=== PATIENT | female | born 1980 | race Caucasian/White ===

== ENCOUNTER 2016-11-20 14:46 | Outpatient (CLI) | payer MEDICAID ==
[~2016-11-20] VITALS: Ht 157.5 cm; Wt 84.0 kg
[~2016-11-20 14:46] MED LIST: IBUP800T25 PO; PERCOCET PO
[2016-11-20 15:15] VITALS: Ht 157.5 cm; Wt 84.0 kg
[2016-11-20 15:27] VITALS: BP 107/70; PULSE 88; RESP 18
[2016-11-20 17:06] LABS: ADD SCAN DIFF NO
[2016-11-20 17:08] LABS: BASOPHILS % 0.2 % (0.0-2.0); EOSINOPHILS # 0.1 10^3/ul (0.0-0.5); EOSINOPHILS % 0.9 % (0.0-7.0); HEMATOCRIT 34.2 % (37.0-47.0); HEMOGLOBIN 11.9 g/dl (12.0-16.0); LYMPHOCYTES # 1.2 10^3/ul (0.8-2.9); LYMPHOCYTES % 20.8 % (15.0-51.0); MEAN CORPUSCULAR HEMOGLOBIN 32.4 pg (29.0-33.0); MEAN CORPUSCULAR HGB CONC 34.8 g/dl (32.0-37.0); MEAN CORPUSCULAR VOLUME 93.2 fl (82.0-101.0); MEAN PLATELET VOLUME 10.2 fl (7.4-10.4); MONOCYTE # 0.6 10^3/ul (0.3-0.9); MONOCYTES % 10.6 % (0.0-11.0); NEUTROPHIL # 3.7 10^3/ul (1.6-7.5); NEUTROPHILS % 65.7 % (39.0-77.0); PLATELET COUNT 208 10^3/UL (140-415); RED BLOOD COUNT 3.67 10^6/ul (4.20-5.40); RED CELL DISTRIBUTION WIDTH 13.2 % (11.5-14.5); WHITE BLOOD COUNT 5.6 10^3/ul (4.8-10.8)
[2016-11-20 17:10] LABS: ADD UMIC YES; URINE BILIRUBIN (Dip) NEGATIVE (NEGATIVE); URINE BLOOD (Dip) NEGATIVE (NEGATIVE); URINE COLOR YELLOW (YELLOW); URINE GLUCOSE (Dip) NEGATIVE (NEGATIVE); URINE KETONES (Dip) 3+ (NEGATIVE); URINE LEUKOCYTE ESTERASE (Dip) TRACE (NEGATIVE); URINE NITRITE (Dip) NEGATIVE (NEGATIVE); URINE TOTAL PROTEIN (Dip) TRACE (NEGATIVE); URINE UROBILINOGEN (Dip) 0.2 E.U./dL (0.1-1.0)
--- NOTE | 2016-11-20 17:12 | RADRPT ---
PROCEDURE: CERVICAL LENGTH ULTRASOUND CLINICAL INDICATION: Positive test. Pelvic pain. TECHNIQUE: Trans-vaginal imaging of the cervical canal was performed utilizing carreon-scale imaging. Sagittal and transverse images were obtained. Trans-abdominal images were also obtained. The darby ges were reviewed on a PACS workstation. COMPARISON: None. FINDINGS: There is a single live intrauterine . heart rate is 141 beats per minute. Position is cephalic and placenta is anterior grade II. There is no placenta previa. The cervix is closed with a length of 4.5 cm. IMPRESSION: 1. Cervical length is 4.5 cm. RPTAT: QQ .Zain Padilla MD, MD Date Time Electronically viewed and signed by .Zain Padilla MD, on 11/20/2016 17:11 .R/
[2016-11-20 17:20] LABS: ALBUMIN 3.4 g/dl (3.3-4.9)
[2016-11-20 17:21] LABS: POTASSIUM 3.7 mmol/L (3.5-5.1)
[2016-11-20 17:23] LABS: ALBUMIN/GLOBULIN RATIO 1.06; BACTERIA,URINE FEW; BILIRUBIN,INDIRECT 0.2 mg/dl (0-1.1); BILIRUBIN,TOTAL 0.2 mg/dl (0.2-1.3); CREATININE 0.54 mg/dl (0.44-1.00); TOTAL PROTEIN 6.6 g/dl (6.1-8.1); URINE RBCS 0-2 /HPF (0)
[2016-11-20 17:24] LABS: CALCIUM 8.8 mg/dl (8.4-10.2)
[2016-11-20] MEDS ORDERED: LACTATED RINGER'S 250 ML IV ONE (18:00)
--- NOTE | 2016-11-21 01:39 | TRIAGE ---
OB Triage Datetime Report Generated by CPN: 11/21/2016 01:39 Datetime: 11/20/2016 21:19 Pain Assessment Pain Scale: 0 Pain Presence: None/Denies Pain Type: N/A Datetime: 11/20/2016 21:00 Labor Evaluation Frequency: x1 Monitor Mode: External Duration (sec)2399: 70 Pattern: Normal: <= 5 Contractions in 10 Minutes Resting Tone [place]: Relaxed Heart Rate FHR Baseline Rate: 135 Monitor Mode: External US Variability: Moderate 6-25 bpm Accelerations: 15X15 Decelerations: None Category: Category I Datetime: 11/20/2016 20:00 Labor Evaluation Frequency: x1 Monitor Mode: External Duration (sec)2399: 40 Pattern: Normal: <= 5 Contractions in 10 Minutes Resting Tone [place]: Relaxed Heart Rate FHR Baseline Rate: 140 Monitor Mode: External US Variability: Moderate 6-25 bpm Accelerations: 15X15 Decelerations: None Category: Category I Pain Assessment Pain Scale: 0 Pain Presence: None/Denies Pain Goal: 0 Datetime: 11/20/2016 18:55 Labor Evaluation Frequency: 0 Monitor Mode: External Pattern: Normal: <= 5 Contractions in 10 Minutes Resting Tone [place]: Relaxed Heart Rate FHR Baseline Rate: 145 Monitor Mode: External US Variability: Moderate 6-25 bpm Accelerations: 15X15 Decelerations: None Category: Category I Pain Assessment Pain Scale: 2 Pain Presence: Intermittent Pain Type: Cramping Pain Location: Abdomen Pain Goal: 0 Pain Relief Measures: Comfort Measures Datetime: 11/20/2016 17:59 Labor Evaluation Frequency: 0 Monitor Mode: External Resting Tone [place]: Relaxed Heart Rate FHR Baseline Rate: 135 Monitor Mode: External US Variability: Moderate 6-25 bpm Accelerations: 15X15 Decelerations: None Category: Category I Pain Presence: None/Denies Pain Type: N/A Datetime: 11/20/2016 17:30 Comments: MATERNAL HT PICKING UP Datetime: 11/20/2016 17:29 Labor Evaluation Frequency: 0 Monitor Mode: External Resting Tone [place]: Relaxed Heart Rate FHR Baseline Rate: 145 Monitor Mode: External US Variability: Moderate 6-25 bpm Accelerations: 15X15 Decelerations: None Category: Category I Datetime: 11/20/2016 17:00 Comments: BACK ON MONITOR AFTER US Datetime: 11/20/2016 16:53 Comments: US AT BEDSIDE Datetime: 11/20/2016 15:52 Stage of : OB Triage Assessment Type: Triage Maternal Assessment Level of Consciousness: Fully Conscious DTR's/Clonus: DTRs 2+; No Clonus Headache: Denies Blurred Vision: No Respiratory Effort: Unlabored; Regular Rhythm; Equal Expansion Breath Sounds, Left: Clear and Equal Breath Sounds, Right: Clear and Equal Nausea/Vomiting: Denies RUQ Epigastric Pain: Denies Upper Extremities Edema: None Degree: None Facial Edema: None Temperature Route: Oral Fall Risk Assessment History of Falling: (0) No Secondary Diagnosis: (0) No Ambulatory Aid: (0) Bedrest/Nurse Assist IV Therapy: (0) No Gait: (0) Normal/Bedrest/Immobile Mental Status: (0) Oriented to Own Ability Fall Score: 0 Fall Risk Score Definition: No Risk: No action required Monitor Mode: External Heart Rate FHR Baseline Rate: 135 Monitor Mode: External US Variability: Moderate 6-25 bpm Accelerations: 15X15 Decelerations: None Pain Assessment Pain Scale: 4 Pain Presence: Intermittent Pain Type: Cramping Pain Location: Abdomen Pain Goal: 0 Pain Relief Measures: Comfort Measures Datetime: 11/20/2016 15:32 Stage of : OB Triage Maternal Assessment Level of Consciousness: Fully Conscious DTR's/Clonus: DTRs 2+; No Clonus Headache: Denies Blurred Vision: No Respiratory Effort: Unlabored; Regular Rhythm; Equal Expansion Breath Sounds, Left: Clear and Equal Breath Sounds, Right: Clear and Equal Nausea/Vomiting: Denies RUQ Epigastric Pain: Denies Lower Extremities Edema: None Degree: None Upper Extremities Edema: None Degree: None Facial Edema: None Temperature Route: Axillary Fall Risk Assessment History of Falling: (0) No Secondary Diagnosis: (0) No Ambulatory Aid: (0) Bedrest/Nurse Assist IV Therapy: (0) No Gait: (0) Normal/Bedrest/Immobile Mental Status: (0) Oriented to Own Ability Fall Score: 0 Fall Risk Score Definition: No Risk: No action required Heart Rate FHR Baseline Rate: 140 Monitor Mode: External US Pain Assessment Pain Scale: 4 Pain Presence: Intermittent Pain Type: Cramping Pain Location: Back Datetime: 11/20/2016 15:30 Time of Arrival: 11/20/2016 15:30 EGA: 32.4 Arrived By: Ambulatory Arrived From: Dr. Bauer Chief Complaint: cramping sice Movement: Present Contractions: Irregular Contractions: cramps Rupture of Membranes: Denies Vaginal Discharge: Denies Recent Sexual Intercouse: Denies Abdominal Trauma: Not Applicable Patient Complaints: Cramping Additional Patient Complaints: c/o vomitting diarhea x 3 days Time Provider Notified: 11/20/2016 16:30 Provider Notified: DR. NG Initial Plan: j carlos
== END 2016-11-20 22:05 | disposition home or self-care (01) ==
LOC: L-D 14:46 → OBT 14:46 → L-D 14:53 → OBT 22:05
PROVIDERS: ATTEND Obstetrics & Gynecology
DX: O26.893 Other specified pregnancy related conditions, third trimester (principal); R10.9 Unspecified abdominal pain; R10.2 Pelvic and perineal pain; O09.523 Supervision of elderly multigravida, third trimester; Z3A.32 32 weeks gestation of pregnancy
CPT/HCPCS: 36415; 76817; 80053; 81001; 85025; 96360; 96361; J7120; Z7500; 81003; G0463

== ENCOUNTER 2016-12-14 18:20 | Outpatient (CLI) | payer MEDICAID ==
[~2016-12-14] VITALS: Ht 154.9 cm; Wt 88.5 kg
[2016-12-14 18:36] VITALS: Ht 154.9 cm; Wt 88.5 kg
[2016-12-14 18:37] VITALS: BP 117/65; PULSE 80; RESP 18
[2016-12-14] MEDS ORDERED: LACTATED RINGER'S 1,000 ML IV ONE (22:00)
[2016-12-14] MEDS ORDERED: LACTATED RINGER'S 1,000 ML IV* SCH (22:00)
--- NOTE | 2016-12-14 22:13 | RADRPT ---
PROCEDURE: OB ultrasound for biophysical profile CLINICAL INDICATION: labor. TECHNIQUE: Multiple sonographic images of the gravid uterus performed. The images were reviewed on a PACS workstation. COMPARISON: 11/20/2016 FINDINGS: A single live intrauterine is identified with heart rate of 141 bpm. Fet us is in a cephalic presentation. Placenta is located anterior grade II. Biophysical profile: breathing movement = 2/2 tone = 2/2 motion = 2/2 LEISA = 2/2 LEISA = 7.8 cm. IMPRESSION: 1. Single live intrauterine gestation. 2. Biophysical profile = 8/8. 3. LEISA = 7.8 cm. RPTAT: HMVK .Danilo Joseph MD, Date Time Electronically viewed and signed by .Danilo Joseph MD, MD on 12/14/2016 22:13 .K/
[2016-12-14 23:33] LABS: ADD UMIC YES; URINE BILIRUBIN (Dip) NEGATIVE (NEGATIVE); URINE BLOOD (Dip) NEGATIVE (NEGATIVE); URINE COLOR LT. YELLOW (YELLOW); URINE GLUCOSE (Dip) NEGATIVE (NEGATIVE); URINE KETONES (Dip) NEGATIVE (NEGATIVE); URINE LEUKOCYTE ESTERASE (Dip) 1+ (NEGATIVE); URINE NITRITE (Dip) NEGATIVE (NEGATIVE); URINE TOTAL PROTEIN (Dip) NEGATIVE (NEGATIVE); URINE UROBILINOGEN (Dip) 0.2 E.U./dL (0.1-1.0)
[2016-12-14 23:53] LABS: URINE RBCS 0-2 /HPF (0)
[2016-12-14 23:54] LABS: BACTERIA,URINE FEW; SQUAMOUS EPITHELIAL CELL,UR FEW
--- NOTE | 2016-12-15 00:31 | PN ---
Date/Time of Note Date/Time of Note DATE: 12/15/16 TIME: 00:03 OB Subjective Subjective Subjective 36 yo P4 @ 35 wks presents w ctx; 2 prior 's followed by 2 prior c/d good FM, no VB, no LOF OB Objective Objective Objective 117/65, 80, 18, 97.6 Abdomen- gravid, n/t SVE- closed FHT- Cat I [place]- ctx q 10 min HEENT: WNL Abdomen: WNL Cervical Dilatation: None Effacement: 0% Station: -3 Membranes: Intact Accelerations: Accelerations Present Decelerations: No Decelerations Varibility: Moderate Contractions on Admission: >10 Minutes Apart Intensity: Mild OB Assessment/Plan Other Assessment: 36 yo P4@ 35 wks, not in labor, w pre-term ctx Other plan: Patient came with c/o ctx, which have decreased after IVfluids reassuring status d/c home patient advised to f/u tomorrow w her doctor RODRICK DAO MD Dec 15, 2016 00:29
[2016-12-15] MEDS ORDERED: PREN1TAB79 PO (00:34)
[2016-12-15] MEDS ORDERED: FERR325C PO (00:35)
--- NOTE | 2016-12-15 03:26 | TRIAGE ---
OB Triage Datetime Report Generated by CPN: 12/15/2016 03:26 Datetime: 12/15/2016 00:27 Stage of : OB Triage Labor Evaluation Frequency: x3 Monitor Mode: External Duration (sec)2399: 60-90 Quality: Mild Pattern: Normal: <= 5 Contractions in 10 Minutes Resting Tone [place]: Relaxed Heart Rate FHR Baseline Rate: 135 Monitor Mode: External US Variability: Moderate 6-25 bpm Accelerations: 15X15 Decelerations: None Category: Category I Datetime: 12/15/2016 00:00 Stage of : OB Triage Labor Evaluation Frequency: x5 Monitor Mode: External Duration (sec)2399: 50-120 Quality: Mild Pattern: Normal: <= 5 Contractions in 10 Minutes Resting Tone [place]: Relaxed Heart Rate FHR Baseline Rate: 145 Monitor Mode: External US FHR Baseline Changes: No Baseline Change Variability: Moderate 6-25 bpm Accelerations: 15X15 Decelerations: None Category: Category I Datetime: 12/14/2016 23:29 Vaginal Exam Dilatation (cms): 0.0 Effacement (%): 0 Station: -4 Exam By: GRANT Escobedo Membrane Status: Intact Vaginal Bleeding: None Cervix, Consistency: Firm Cervix, Position: Posterior Datetime: 12/14/2016 23:00 Stage of : OB Triage Labor Evaluation Frequency: x6 Monitor Mode: External Duration (sec)2399: 50-130 Quality: Mild Pattern: Normal: <= 5 Contractions in 10 Minutes Resting Tone [place]: Relaxed Heart Rate FHR Baseline Rate: 145 Monitor Mode: External US FHR Baseline Changes: No Baseline Change Variability: Moderate 6-25 bpm Accelerations: 15X15 Decelerations: None Category: Category I Datetime: 12/14/2016 22:00 Stage of : OB Triage Labor Evaluation Frequency: Irregular Monitor Mode: External Duration (sec)2399: 40-90 Quality: Mild Pattern: Normal: <= 5 Contractions in 10 Minutes Resting Tone [place]: Relaxed Heart Rate FHR Baseline Rate: 145 Monitor Mode: External US Variability: Moderate 6-25 bpm Accelerations: 15X15 Decelerations: None Category: Category I Datetime: 12/14/2016 21:00 Stage of : OB Triage Labor Evaluation Frequency: x4 Monitor Mode: External Duration (sec)2399: 60-100 Quality: Mild Pattern: Normal: <= 5 Contractions in 10 Minutes Resting Tone [place]: Relaxed Heart Rate FHR Baseline Rate: 140 Monitor Mode: External US Variability: Moderate 6-25 bpm Accelerations: 15X15 Decelerations: None Category: Category I Datetime: 12/14/2016 20:36 Stage of : OB Triage Assessment Type: Triage Maternal Assessment Level of Consciousness: Fully Conscious DTR's/Clonus: DTRs 2+; No Clonus Headache: Denies Blurred Vision: No Respiratory Effort: Unlabored; Regular Rhythm; Equal Expansion Breath Sounds, Left: Clear and Equal Breath Sounds, Right: Clear and Equal Nausea/Vomiting: Denies RUQ Epigastric Pain: Denies Lower Extremities Edema: Bilateral Lower Extremities Degree: 1+ Upper Extremities Edema: None Degree: None Facial Edema: None Temperature Route: Oral Fall Risk Assessment History of Falling: (0) No Secondary Diagnosis: (0) No Ambulatory Aid: (0) Bedrest/Nurse Assist IV Therapy: (0) No Gait: (0) Normal/Bedrest/Immobile Mental Status: (0) Oriented to Own Ability Fall Score: 0 Fall Risk Score Definition: No Risk: No action required Pain Assessment Pain Scale: 3 Pain Presence: Intermittent Pain Type: Cramping Pain Location: Abdomen Pain Relief Measures: Comfort Measures Datetime: 12/14/2016 20:00 Stage of : OB Triage Labor Evaluation Frequency: x4 Monitor Mode: External Duration (sec)2399: 50-110 Quality: Mild Pattern: Normal: <= 5 Contractions in 10 Minutes Resting Tone [place]: Relaxed Heart Rate FHR Baseline Rate: 150 Monitor Mode: External US Variability: Moderate 6-25 bpm Accelerations: 15X15 Decelerations: None Category: Category I Datetime: 12/14/2016 18:49 Headache: Denies Blurred Vision: No RUQ Epigastric Pain: Denies Facial Edema: None Labor Evaluation Frequency: 13 Monitor Mode: External Duration (sec)2399: 50 Quality: Mild Pattern: Normal: <= 5 Contractions in 10 Minutes Resting Tone [place]: Non Relaxed Heart Rate FHR Baseline Rate: 145 FHR Baseline Changes: No Baseline Change Variability: Moderate 6-25 bpm Accelerations: 15X15 Decelerations: None Category: Category I Membrane Status: Intact Datetime: 12/14/2016 18:31 Stage of : OB Triage Maternal Assessment Level of Consciousness: Fully Conscious DTR's/Clonus: DTRs 2+; No Clonus Headache: Denies Blurred Vision: No Respiratory Effort: Unlabored; Regular Rhythm; Equal Expansion Breath Sounds, Left: Clear and Equal Breath Sounds, Right: Clear and Equal Nausea/Vomiting: Denies RUQ Epigastric Pain: Denies Lower Extremities Edema: Bilateral Lower Extremities Degree: 1+ Upper Extremities Edema: None Degree: None Facial Edema: None Temperature Route: Axillary Fall Risk Assessment History of Falling: (0) No Secondary Diagnosis: (0) No Ambulatory Aid: (0) Bedrest/Nurse Assist IV Therapy: (0) No Gait: (0) Normal/Bedrest/Immobile Mental Status: (0) Oriented to Own Ability Fall Score: 0 Fall Risk Score Definition: No Risk: No action required Monitor Mode: External Heart Rate FHR Baseline Rate: 150 Monitor Mode: External US Pain Presence: Constant Pain Type: Pressure Pain Location: lower abd Pain Goal: 4 Datetime: 12/14/2016 18:23 Time of Arrival: 12/14/2016 18:23 EGA: 35.0 Arrived By: Wheelchair Arrived From: Home Chief Complaint: lower abd pain, pressure on vaginal area Movement: Present Contractions: Regular Time Contractions Began: 12/14/2016 17:00 Contractions: [id number] Rupture of Membranes: Denies Vaginal Bleeding: None Vaginal Discharge: Denies Recent Sexual Intercouse: Denies Abdominal Trauma: Not Applicable Patient Complaints: Contractions; Cramping Time Provider Notified: 12/14/2016 21:20 Provider Notified: Initial Plan: efm/ sve Datetime: 11/20/2016 21:41 Labor Evaluation Frequency: NONE Monitor Mode: External Resting Tone [place]: Relaxed Heart Rate FHR Baseline Rate: 140 Monitor Mode: External US Variability: Moderate 6-25 bpm Accelerations: 15X15 Decelerations: None Category: Category I Datetime: 11/20/2016 15:52 Fall Score: 0 Fall Risk Score Definition: No Risk: No action required Datetime: 11/20/2016 15:32 Fall Score: 0 Fall Risk Score Definition: No Risk: No action required Datetime: 11/20/2016 15:30 EGA: 31.4
== END 2016-12-15 00:39 | disposition home or self-care (01) ==
LOC: OBT 18:20 → L-D 18:21 → OBT 12-15 00:39
PROVIDERS: ATTEND Obstetrics & Gynecology
DX: O47.03 False labor before 37 completed weeks of gestation, third trimester (principal); Z3A.35 35 weeks gestation of pregnancy
CPT/HCPCS: 36415; 76818; 81001; 81003; 96361; J7120; Z7500; G0463

== ENCOUNTER 2017-01-01 12:58 | Inpatient (IN) | payer MEDICAID ==
[~2017-01-01] VITALS: Ht 152.4 cm; Wt 90.0 kg
[~2017-01-01 12:58] MED LIST changes: +FERR325C PO; -IBUP800T25 PO; -PERCOCET PO; +PREN1TAB79 PO
[2017-01-01 13:15] VITALS: Ht 152.4 cm; Wt 90.0 kg
[2017-01-01 13:16] VITALS: BP 113/59; PULSE 80; RESP 20
[2017-01-01] MEDS ORDERED: CALC-68 PO (13:18)
[2017-01-01] MEDS: LACTATED RINGER'S 1,000 ML IV PRN ×2 (14:10→15:34)
[2017-01-01 14:16] LABS: ADD SCAN DIFF NO
[2017-01-01 14:21] LABS: BASOPHILS % 0.4 % (0.0-2.0); EOSINOPHILS # 0.1 10^3/ul (0.0-0.5); HEMATOCRIT 33.6 % (37.0-47.0); HEMOGLOBIN 11.4 g/dl (12.0-16.0); LYMPHOCYTES # 1.2 10^3/ul (0.8-2.9); LYMPHOCYTES % 14.2 % (15.0-51.0); MEAN CORPUSCULAR HEMOGLOBIN 31.8 pg (29.0-33.0); MEAN CORPUSCULAR HGB CONC 33.9 g/dl (32.0-37.0); MEAN CORPUSCULAR VOLUME 93.6 fl (82.0-101.0); MEAN PLATELET VOLUME 10.8 fl (7.4-10.4); MONOCYTE # 0.7 10^3/ul (0.3-0.9); MONOCYTES % 8.1 % (0.0-11.0); NEUTROPHIL # 6.1 10^3/ul (1.6-7.5); NEUTROPHILS % 74.8 % (39.0-77.0); PLATELET COUNT 196 10^3/UL (140-415); RED BLOOD COUNT 3.59 10^6/ul (4.20-5.40); RED CELL DISTRIBUTION WIDTH 13.6 % (11.5-14.5); WHITE BLOOD COUNT 8.1 10^3/ul (4.8-10.8)
[2017-01-01 16:18] LABS: ADD UMIC YES; URINE BILIRUBIN (Dip) NEGATIVE (NEGATIVE); URINE BLOOD (Dip) 1+ (NEGATIVE); URINE COLOR LT. YELLOW (YELLOW); URINE GLUCOSE (Dip) NEGATIVE (NEGATIVE); URINE KETONES (Dip) 15 (NEGATIVE); URINE LEUKOCYTE ESTERASE (Dip) TRACE (NEGATIVE); URINE NITRITE (Dip) NEGATIVE (NEGATIVE); URINE TOTAL PROTEIN (Dip) NEGATIVE (NEGATIVE); URINE UROBILINOGEN (Dip) 0.2 E.U./dL (0.1-1.0)
[2017-01-01 16:26] LABS: BACTERIA,URINE FEW; SQUAMOUS EPITHELIAL CELL,UR FEW; URINE RBCS 0-2 /HPF (0)
[2017-01-01] MEDS ORDERED: TERBUTALINE 1 MG/ML INJ SC ONE (17:30)
--- NOTE | 2017-01-01 19:38 | HP ---
Date/Time of Note Date/Time of Note DATE: 01/01/17 TIME: 19:32 OB - History Hx of Present Free Text/Dictation admitted for C/O vaginal bleeding at 37.3 weeks Chief Complaint: uterine contractions and vaginal bleeding Last Menstrual Period: Apr 13, 2016 Estimated Due Date: January 18, 2017 : 5 Para: 4 Care: Good Care Ultrasounds: Normal mid trimester US Obstetrical Complications: None Medical Complications: Other (previous C/S X 2 ) Past Family/Social History * Past Medical, Surgical, Family and Obstetric Histories reviewed from chart. Blood Type: O+ Rubella: immune RPR/VDRL: Negative GBS Status: Negative HBsAG: Negative OB Admission Exam Vital Signs Vital Signs Vital Signs Date Time Temp Pulse Resp B/P Pulse Ox O2 Delivery O2 Flow Rate FiO2 01/01/17 13:16 98.0 80 20 113/59 Room Air Physical Exam HEENT: WNL Heart: Rhythm Normal Lungs: Clear, Equal Abdomen: WNL Extremities: Normal Reflexes: Normal Cervical Dilatation: None Effacement: 0% Station: [place] Accelerations: Accelerations Present Decelerations: No Decelerations Varibility: Marked Contractions on Admission: >10 Minutes Apart Date/Time Contractions Began: 01/01/2017 Frequency of Contractions: q 3 Duration: >30 seconds Last 72 hours Lab Results CBC & BMP 01/01/17 14:00 OB Assessment/Plan Other Assessment: 37 + weeks gestation uterine contractions Other plan: SQ terbutaline given will observe for U/C until next day KENISHA DUFF MD Jan 01, 2017 19:37
[2017-01-01] MEDS ORDERED: CARBOPROST 250 MCG INJ IM PRN (20:30)
[2017-01-01] MEDS ORDERED: OXYTOCIN 30 UNITS/LR 500 ML IV PRN (20:30)
[2017-01-01] MEDS ORDERED: METHYLERGONOVINE 0.2 MG INJ IM PRN (20:30)
[2017-01-01] MEDS ORDERED: MISOPROSTOL 200 MCG TAB PR PRN (20:30)
[2017-01-01] MEDS ORDERED: CLINDAMYCIN 900 MG/D5W (PMX) 50 ML IVPB SCH (20:30)
[2017-01-01] MEDS ORDERED: OXYTOCIN 30 UNITS/LR 500 ML IV SCH (20:30)
[2017-01-01 21:04] LABS: INR 0.91; PARTIAL THROMBOPLASTIN TIME 30.3 Sec (25.0-35.0); PROTIME 12.3 Sec (12.2-14.2)
--- NOTE | 2017-01-02 00:24 | DS ---
Date/Time of Note Date/Time of Note DATE: 01/02/17 TIME: 00:22 Obstetrical Discharge Record Final Diagnosis Final Diagnosis: Term delivered Other Final Diagnosis Uterine contractions Complications Tocolytics: Terbutaline Condition on Discharge Physical Assessment Last Vitals: see nurses notes Voiding: Yes Bowel Movement: Yes Breast: Soft, non-tender, Filling Fundus: Other (geavid) Abdomen and Incision: gravid Episiotomy: NA Calf Tenderness: No Patient Condition: Good KENISHA DUFF MD Jan 02, 2017 00:24
--- NOTE | 2017-01-02 00:27 | PD.PPDC ---
[employer]ATOR Discharge Instruction Provider Information Physician Information 36 y/o female admitted with uterine contractions which subsided Diagnosis Final Diagnosis: uterine contractions Condition Patient Condition: Good Activity/Restrictions Activity: May Shower Restrictions: No Exercising No Lifting Nothing in the Vagina Follow-up Follow-up with Physician: 1, Day/Days (in cliniuc ) Return to clinic for Comment: return for increasing uterine contractions KENISHA DUFF MD Jan 02, 2017 00:27
--- NOTE | 2017-01-02 04:20 | TRIAGE ---
OB Triage Datetime Report Generated by CPN: 01/02/2017 04:19 Datetime: 01/01/2017 23:42 Pain Assessment Pain Scale: 0 Pain Presence: None/Denies Pain Type: N/A Pain Assessment Comments: PT. STATES SHE ONLY HAS 'PRESSURE' FROM FETUS MOVING. FETUS MOVEMENT OBS ERVED VISUALLY AND BY TOUCH Datetime: 01/01/2017 22:46 Assessment Type: Admission Assessment Vaginal Bleeding: None Maternal Assessment Level of Consciousness: Fully Conscious DTR's/Clonus: DTRs 2+; No Clonus Headache: Denies Blurred Vision: No Respiratory Effort: Unlabored; Regular Rhythm; Equal Expansion Breath Sounds, Left: Clear and Equal Breath Sounds, Right: Clear and Equal Nausea/Vomiting: Denies RUQ Epigastric Pain: Denies Facial Edema: None Fall Risk Assessment History of Falling: (0) No Secondary Diagnosis: (0) No Ambulatory Aid: (0) Bedrest/Nurse Assist Gait: (0) Normal/Bedrest/Immobile Mental Status: (0) Oriented to Own Ability Heart Rate FHR Baseline Rate: 150 Variability: Moderate 6-25 bpm Accelerations: 15X15 Decelerations: None Category: Category I Pain Assessment Pain Scale: 3 Pain Presence: Intermittent Pain Type: Cramping Pain Location: Abdomen Pain Goal: 0 Pain Assessment Comments: Datetime: 01/01/2017 18:10 Labor Evaluation Frequency: X3 Monitor Mode: External Duration (sec)2399: 40-80 Quality: Strong Pattern: Normal: <= 5 Contractions in 10 Minutes Resting Tone [place]: Relaxed Heart Rate FHR Baseline Rate: 140 Monitor Mode: External US FHR Baseline Changes: No Baseline Change Variability: Moderate 6-25 bpm Accelerations: 15X15 Decelerations: None Category: Category I Pain Assessment Pain Scale: 7 Pain Presence: Intermittent Pain Type: Contraction Pain Location: Abdomen Pain Goal: 2 Pain Relief Measures: Comfort Measures Datetime: 01/01/2017 17:39 Labor Evaluation Frequency: 2-9 Monitor Mode: External Duration (sec)2399: 40-90 Quality: Strong Pattern: Normal: <= 5 Contractions in 10 Minutes Resting Tone [place]: Relaxed Heart Rate FHR Baseline Rate: 140 Monitor Mode: External US FHR Baseline Changes: No Baseline Change Variability: Moderate 6-25 bpm Accelerations: 15X15 Decelerations: None Category: Category I Pain Assessment Pain Scale: 7 Pain Presence: Intermittent Pain Type: Contraction Pain Location: Abdomen Pain Goal: 2 Pain Relief Measures: Comfort Measures Membrane Status: Intact Datetime: 01/01/2017 17:09 Labor Evaluation Frequency: 1-9 Monitor Mode: External Duration (sec)2399: 40-100 Quality: Strong Pattern: Normal: <= 5 Contractions in 10 Minutes Resting Tone [place]: Relaxed Heart Rate FHR Baseline Rate: 140 Monitor Mode: External US FHR Baseline Changes: No Baseline Change Variability: Moderate 6-25 bpm Accelerations: 15X15 Decelerations: None Category: Category I Pain Assessment Pain Scale: 7 Pain Presence: Intermittent Pain Type: Contraction Pain Location: Abdomen Pain Goal: 2 Pain Relief Measures: Comfort Measures Membrane Status: Intact Datetime: 01/01/2017 16:40 Labor Evaluation Frequency: 1-7 Monitor Mode: External Duration (sec)2399: 40-90 Quality: Strong Pattern: Normal: <= 5 Contractions in 10 Minutes Resting Tone [place]: Relaxed Heart Rate FHR Baseline Rate: 140 Monitor Mode: External US FHR Baseline Changes: No Baseline Change Variability: Moderate 6-25 bpm Accelerations: 15X15 Decelerations: None Category: Category I Pain Assessment Pain Scale: 6 Pain Presence: Intermittent Pain Type: Contraction Pain Location: Abdomen Pain Goal: 2 Pain Relief Measures: Comfort Measures Membrane Status: Intact Datetime: 01/01/2017 16:11 Labor Evaluation Frequency: 1-9 Monitor Mode: External Duration (sec)2399: 40-80 Quality: Strong Pattern: Normal: <= 5 Contractions in 10 Minutes Resting Tone [place]: Relaxed Heart Rate FHR Baseline Rate: 140 Monitor Mode: External US FHR Baseline Changes: No Baseline Change Variability: Moderate 6-25 bpm Accelerations: 15X15 Decelerations: None Category: Category I Datetime: 01/01/2017 15:39 Labor Evaluation Frequency: 2-8 Monitor Mode: External Duration (sec)2399: 60-90 Quality: Strong Pattern: Normal: <= 5 Contractions in 10 Minutes Resting Tone [place]: Relaxed Heart Rate FHR Baseline Rate: 140 Monitor Mode: External US FHR Baseline Changes: No Baseline Change Variability: Moderate 6-25 bpm Accelerations: 15X15 Decelerations: None Category: Category I Pain Assessment Pain Scale: 6 Pain Presence: Intermittent Pain Type: Contraction Pain Location: Abdomen Pain Goal: 2 Pain Relief Measures: Comfort Measures Datetime: 01/01/2017 15:09 Labor Evaluation Frequency: 1-8 Monitor Mode: External Duration (sec)2399: 30-100 Quality: Strong Pattern: Normal: <= 5 Contractions in 10 Minutes Resting Tone [place]: Relaxed Heart Rate FHR Baseline Rate: 130 Monitor Mode: External US FHR Baseline Changes: No Baseline Change Variability: Moderate 6-25 bpm Accelerations: 15X15 Decelerations: None Category: Category I Pain Assessment Pain Scale: 4 Pain Presence: Intermittent Pain Type: Contraction Pain Location: Abdomen Pain Goal: 2 Pain Relief Measures: Comfort Measures Datetime: 01/01/2017 14:46 Labor Evaluation Frequency: X5 Monitor Mode: External Duration (sec)2399: 60-120 Quality: Strong Pattern: Normal: <= 5 Contractions in 10 Minutes Resting Tone [place]: Relaxed Heart Rate FHR Baseline Rate: 140 Monitor Mode: External US FHR Baseline Changes: No Baseline Change Variability: Moderate 6-25 bpm Accelerations: 15X15 Decelerations: None Category: Category I Pain Assessment Pain Scale: 4 Pain Presence: Intermittent Pain Type: Contraction Pain Location: Abdomen Pain Goal: 2 Pain Relief Measures: Comfort Measures Datetime: 01/01/2017 14:10 Labor Evaluation Frequency: 3-11 Monitor Mode: External Duration (sec)2399: 60-180 Quality: Moderate Pattern: Normal: <= 5 Contractions in 10 Minutes Resting Tone [place]: Relaxed Heart Rate FHR Baseline Rate: 140 Monitor Mode: External US FHR Baseline Changes: No Baseline Change Variability: Moderate 6-25 bpm Accelerations: 15X15 Decelerations: None Category: Category I Pain Assessment Pain Scale: 4 Pain Presence: Intermittent Pain Type: Contraction Pain Location: Abdomen Pain Goal: 2 Pain Relief Measures: Comfort Measures Datetime: 01/01/2017 13:42 Vaginal Exam Dilatation (cms): 1.0 Effacement (%): 60 Station: -3 Exam By: MAY Vaginal Bleeding: None Cervix, Consistency: Soft Cervix, Position: Posterior Datetime: 01/01/2017 13:39 Labor Evaluation Frequency: X3 Monitor Mode: External Duration (sec)2399: 70-180 Quality: Moderate Pattern: Normal: <= 5 Contractions in 10 Minutes Resting Tone [place]: Relaxed Heart Rate FHR Baseline Rate: 140 Monitor Mode: External US FHR Baseline Changes: No Baseline Change Variability: Moderate 6-25 bpm Accelerations: 15X15 Decelerations: None Category: Category I Pain Assessment Pain Scale: 4 Pain Presence: Intermittent Pain Type: Contraction Pain Location: Abdomen Pain Goal: 2 Pain Relief Measures: Comfort Measures Datetime: 01/01/2017 13:30 Stage of : OB Triage Assessment Type: Triage Maternal Assessment Level of Consciousness: Fully Conscious DTR's/Clonus: No Clonus Headache: Denies Blurred Vision: No Respiratory Effort: Unlabored; Regular Rhythm; Equal Expansion Nausea/Vomiting: Denies RUQ Epigastric Pain: Denies Lower Extremities Edema: Bilateral Lower Extremities Degree: Pitting Upper Extremities Edema: None Degree: None Facial Edema: None Fall Risk Assessment History of Falling: (0) No Secondary Diagnosis: (0) No Ambulatory Aid: (0) Bedrest/Nurse Assist IV Therapy: (0) No Gait: (0) Normal/Bedrest/Immobile Mental Status: (0) Oriented to Own Ability Fall Score: 0 Fall Risk Score Definition: No Risk: No action required Datetime: 01/01/2017 13:08 Time of Arrival: 01/01/2017 12:55 EGA: 37.4 Arrived By: Ambulatory Arrived From: Home Chief Complaint: BLOODY DISCHARGE AND LOW ABDOMINAL PAIN Movement: Present Contractions: Irregular Time Contractions Began: 01/01/2017 13:05 Rupture of Membranes: Denies Vaginal Bleeding: Normal Show Vaginal Discharge: Present Recent Sexual Intercouse: Denies Abdominal Trauma: Not Applicable Patient Complaints: Contractions Time Provider Notified: 01/01/2017 13:48 Provider Notified: DR. NG Initial Plan: EFM Datetime: 12/14/2016 21:20 Stage of : OB Triage Datetime: 12/14/2016 20:36 Fall Score: 0 Fall Risk Score Definition: No Risk: No action required Datetime: 12/14/2016 18:31 Fall Score: 0 Fall Risk Score Definition: No Risk: No action required Datetime: 12/14/2016 18:23 EGA: 35.0 Datetime: 11/20/2016 15:52 Fall Score: 0 Fall Risk Score Definition: No Risk: No action required Datetime: 11/20/2016 15:32 Fall Score: 0 Fall Risk Score Definition: No Risk: No action required Datetime: 11/20/2016 15:30 EGA: 31.4
== END 2017-01-02 00:46 | disposition home or self-care (01) | DRG 782 ==
LOC: OBT 12:58 → L-D 12:58 → OBT 19:40
PROVIDERS: ADMIT Obstetrics & Gynecology; ATTEND Obstetrics & Gynecology
DX: O62.9 Abnormality of forces of labor, unspecified (principal); O46.93 Antepartum hemorrhage, unspecified, third trimester; Z3A.37 37 weeks gestation of pregnancy
CPT/HCPCS: 36415; 81001; 81003; 85025; 85610; 85730; 86592; 86850; 86900; 86901; 96360; 96361; 96372; G0463; J3105

== ENCOUNTER 2017-01-11 11:06 | Inpatient (IN) | payer MEDICAID ==
[~2017-01-11] VITALS: Ht 152.4 cm; Wt 90.4 kg
[~2017-01-11 11:06] MED LIST changes: +CALC-68 PO
[2017-01-11 11:25] VITALS: Ht 152.4 cm; Wt 90.4 kg
[2017-01-11 11:28] VITALS: BP 119/68; PULSE 79; RESP 18
[2017-01-11] MEDS ORDERED: METHYLERGONOVINE 0.2 MG INJ IM PRN ×2 (11:30→18:30)
[2017-01-11] MEDS ORDERED: MISOPROSTOL 200 MCG TAB PR PRN ×2 (11:30→18:30)
[2017-01-11] MEDS ORDERED: OXYTOCIN 30 UNITS/LR 500 ML IV PRN ×2 (11:30→18:30)
[2017-01-11] MEDS ORDERED: CLINDAMYCIN 900 MG/D5W (PMX) 50 ML IV SCH (11:30)
[2017-01-11] MEDS ORDERED: CARBOPROST 250 MCG INJ IM PRN ×2 (11:30→18:30)
[2017-01-11] MEDS: LACTATED RINGER'S 1,000 ML IV SCH ×3 (11:44→18:23)
[2017-01-11 12:50] LABS: ADD SCAN DIFF NO
[2017-01-11 12:52] LABS: BASOPHILS % 0.4 % (0.0-2.0); EOSINOPHILS # 0.1 10^3/ul (0.0-0.5); EOSINOPHILS % 0.6 % (0.0-7.0); HEMATOCRIT 35.6 % (37.0-47.0); HEMOGLOBIN 12.5 g/dl (12.0-16.0); LYMPHOCYTES # 1.2 10^3/ul (0.8-2.9); LYMPHOCYTES % 12.2 % (15.0-51.0); MEAN CORPUSCULAR HEMOGLOBIN 33.1 pg (29.0-33.0); MEAN CORPUSCULAR HGB CONC 35.1 g/dl (32.0-37.0); MEAN CORPUSCULAR VOLUME 94.2 fl (82.0-101.0); MEAN PLATELET VOLUME 11.1 fl (7.4-10.4); MONOCYTE # 0.8 10^3/ul (0.3-0.9); MONOCYTES % 8.5 % (0.0-11.0); NEUTROPHIL # 7.4 10^3/ul (1.6-7.5); NEUTROPHILS % 77.2 % (39.0-77.0); PLATELET COUNT 210 10^3/UL (140-415); RED BLOOD COUNT 3.78 10^6/ul (4.20-5.40); RED CELL DISTRIBUTION WIDTH 13.8 % (11.5-14.5); WHITE BLOOD COUNT 9.7 10^3/ul (4.8-10.8)
[2017-01-11] MEDS ORDERED: GENTAMICIN 80 MG/NS (PMX) 50 ML IVPB ONE (13:00)
[2017-01-11 13:06] LABS: INR 0.91; PARTIAL THROMBOPLASTIN TIME 29.4 Sec (25.0-35.0); PROTIME 12.2 Sec (12.2-14.2)
[2017-01-11] MEDS ORDERED: CITRIC ACID/NA CITRATE 30 ML CUP ONE (13:06)
[2017-01-11] MEDS ORDERED: ONDANSETRON 4 MG INJ ONE (13:06)
[2017-01-11] MEDS ORDERED: ONDANSETRON 4 MG INJ IV STA (13:12)
[2017-01-11] MEDS ORDERED: CITRIC ACID/SODIUM CITRATE 15 ML CUP PO ONE (13:30)
[2017-01-11] MEDS ORDERED: KETOROLAC 30 MG INJ ONE (13:34)
[2017-01-11] MEDS ORDERED: OXYTOCIN 10 UNIT INJ ONE (13:34)
[2017-01-11] MEDS ORDERED: morphine SULFATE/PF (10 MG/10 ML) INJ ONE (13:34)
[2017-01-11] MEDS ORDERED: DEXAMETHASONE 4 MG/ML 1 ML INJ ONE (13:34)
[2017-01-11] MEDS ORDERED: METOCLOPRAMIDE 10 MG INJ ONE (13:34)
[2017-01-11] MEDS ORDERED: PHENYLephrine (100 MCG/ML) 5ML SYG ONE ×2 (13:34→15:35)
[2017-01-11] MEDS ORDERED: ONDANSETRON 4 MG INJ IV PRN (15:30)
[2017-01-11] MEDS ORDERED: KETOROLAC 30 MG INJ IV PRN (15:30)
[2017-01-11] MEDS ORDERED: morphine 2 MG INJ IV PRN (15:30)
[2017-01-11] MEDS ORDERED: NALOXONE (0.4 MG/ML) INJ IV PRN (15:30)
[2017-01-11] MEDS ORDERED: morphine 4 MG/ML VIAL IV PRN (15:30)
[2017-01-11] MEDS ORDERED: HYDROCODONE/APAP (5/325) TAB PO PRN (15:30)
[2017-01-11] MEDS ORDERED: ACETAMINOPHEN 500 MG TAB PO PRN (15:30)
[2017-01-11] MEDS ORDERED: DIPHENHYDRAMINE 50 MG INJ IV PRN (15:30)
[2017-01-11] MEDS ORDERED: NALBUPHINE HCL (10 MG/1 ML) INJ IV PRN (15:30)
[2017-01-11] MEDS ORDERED: MEPERIDINE 25 MG INJ IV PRN (15:30)
[2017-01-11] MEDS ORDERED: HYDROmorphONE 1 MG/ML SYG IV PRN ×2 (15:30)
--- NOTE | 2017-01-11 15:39 | HP ---
Date/Time of Note Date/Time of Note DATE: 01/11/17 TIME: 15:37 OB - History Hx of Present Free Text/Dictation admitted for repeat C/S and BTL Last Menstrual Period: Apr 13, 2016 Estimated Due Date: January 18, 2017 : 6 Para: 4 Spontaneous : 1 Therapeutic : 0 Care: Good Care Ultrasounds: Normal mid trimester US Obstetrical Complications: None Medical Complications: Other (previous C/S X 2 ) Past Family/Social History * Past Medical, Surgical, Family and Obstetric Histories reviewed from chart. Blood Type: O+ Rubella: immune RPR/VDRL: Negative GBS Status: Negative HBsAG: Negative OB Admission Exam Vital Signs Vital Signs Vital Signs Date Time Temp Pulse Resp B/P Pulse Ox O2 Delivery O2 Flow Rate FiO2 01/11/17 11:28 97.9 79 18 119/68 Room Air Physical Exam HEENT: WNL Heart: Rhythm Normal Lungs: Clear, Equal Abdomen: WNL Extremities: Normal Reflexes: Normal Cervical Dilatation: None Effacement: 0% Station: -3 Membranes: Intact Heart Rate: 130's Accelerations: Accelerations Present Decelerations: No Decelerations Last 72 hours Lab Results CBC & BMP 01/11/17 11:39 OB Assessment/Plan Reason for admission: section Other Assessment: term gestation previous C/S X 2 desires sterilization Other plan: repeat C/S + BTL KENISHA DUFF MD January 11, 2017 15:39
--- NOTE | 2017-01-11 15:43 | OPR ---
Operative Report Planned Procedure Procedure date January 11, 2017 Procedure(s) repeat C/S + BTL Performed by: KENISHA DUFF MD Assisting provider: ERIBERTO STEELE MD Anesthesiologist: PREETHI DAWSON MD Pre-procedure diagnosis term gestation previous C/S X 2 desires sterilization Anesthesia Type: spinal Procedure Description Under satisfactory anaesthesia a Pfannenstiel incision was made two fingerbreadth above and parallel to the symphysis of pubis around the previous scar and previous scar was removed Incision was extended laterally to the border of the Recti muscles on either sides. Incision was carried down with sharp and blunt dissection until fascia was reached. Anterior Recti muscle fascia was incised in mid portion and incision extended laterally to the border of skin incision. Fascia was mobilized from muscle superiorly and Recti muscles were from midline using sharp and blunt dissection. Peritoneum was visualized; Avoiding bowel and bladder it was incised . Incision was extended superiorly and inferiorly. Bladder blade was placed. Posterior peritoneum covering the lower segment of the uterus and lower segment of the uterus were incised.Low transverse uterine incision was made on lower segment of the uterus. Incision extended laterally to the border of Round Lig. on either sides and baby was delivered from OT. position . Amniotic fluid appeared clear. Cord blood was obtained and cord had 3 vessels . Placenta was delivered spontaneously and appeared intact and complete. Intrauterine cavity was rubbed with a laparotomy sponge. Uterine incision was closed in 2 layers using running stitches of No1 Monocryl. Hemostasis appeared secure. Ovaries and Fallopian tubes were within normal limits. Bilateral Tubal Ligation was performed by following procedure: R fallopian tube was raised in mid portion; a Angelina clamp was placed below the fimbriae extending to proximal portion of the fallopian tube. Another clamp was placed parallel to the first and after incising the fallopian tube the stump was sutured using 0 Vicryl stitch. Hemostasis was secure . Same procedure was done on fallopian tube on the opposite side. Hemostasis appeared to be secure on ligated sites of either fallopian tubes. Announcing needle, lap sponge and instrument count to be correct abdomen was closed in layers as follows: Peritoneum and Recti muscles with running stitches of 20 Vicryl. Fascia with running stitch of No 1 PDS. Subcutaneous tissue with running stitches of 20 Chromic and skin was closed using madeline. Patient tolerated the procedure well and was transferred to [facility] in good condition. Post-Procedure Post-procedure diagnosis S/P repeat C/S + BTL Findings: Live Baby normal R and L tubes and ovary Specimen removed: Yes Specimen description segments od R and L fallopian tubes Complications: None Pt Condition post procedure: stable Disposition: PACU Physician Certification I, the undersigned physician, hereby certify that I have discussed the procedure described in this consent form with this patient (or the patient's legal shipping services sales representative), including: * The risk and benefits of the procedure; * Any adverse reactions that may reasonably be expected to occur; * Any alternative efficacious methods of treatment which may be medically viable ; * The potential problems that may occur during recuperation; * Potential for blood transfusion and associated risks/benefits; and * Any research or economic interest I may have regarding this treatment. I further certify that the patient/legally responsible person was encouraged to ask question and that all questions were answered. KENISHA DUFF MD January 11, 2017 15:43
[2017-01-11] MEDS: OXYTOCIN 30 UNITS/LR 500 ML IV SCH ×2 (16:56→23:53)
[2017-01-11] MEDS ORDERED: OXYCODONE/ACETAMINOPHEN (5/325) TAB PO PRN (18:30)
[2017-01-11] MEDS ORDERED: VANCOMYCIN 1 GM (PMX) 250 ML IVPB SCH (18:30)
[2017-01-11] MEDS ORDERED: LANOLIN 7 GM TUBE TOP PRN (18:30)
[2017-01-11] MEDS ORDERED: NA PHOSPHATE/BIPHOS 133 ML ENEMA PR PRN (18:30)
[2017-01-11] MEDS: GENTAMICIN 80 MG/NS (PMX) 50 ML IVPB SCH (18:30)
[2017-01-11] MEDS ORDERED: ACETAMINOPHEN/CODEINE #3 TAB PO PRN ×2 (18:30)
[2017-01-11 18:35] VITALS: BP 125/69; PULSE 86; RESP 18
[2017-01-11 20:00] VITALS: BP 110/65; PULSE 77; RESP 20
[2017-01-11] MEDS: SENNA/DOCUSATE NA (8.6MG/50MG) TAB PO SCH (21:27)
[2017-01-11] MEDS: IBUPROFEN 800 MG TAB PO SCH (22:00)
[2017-01-11] MEDS ORDERED: CLINDAMYCIN 900 MG/D5W (PMX) 50 ML IVPB SCH (22:00)
[2017-01-12] MEDS: LACTATED RINGER'S 1,000 ML IV SCH ×3 (02:23→19:38)
[2017-01-12] MEDS: GENTAMICIN 80 MG/NS (PMX) 50 ML IVPB SCH ×3 (02:41→18:46)
[2017-01-12 04:21] VITALS: BP 109/64; PULSE 88; RESP 20
[2017-01-12] MEDS: IBUPROFEN 800 MG TAB PO SCH ×3 (06:00→21:48)
[2017-01-12] MEDS: CLINDAMYCIN 300 MG CAP PO SCH ×4 (06:00→18:45)
--- NOTE | 2017-01-12 07:14 | OPPN ---
Date/Time of Note Date/Time of Note DATE: 01/12/17 TIME: 07:13 Post-Anesthesia Notes Post-Anesthesia Note Last documented vital signs Vital Signs Date Time Temp Pulse Resp B/P Pulse Ox O2 Delivery O2 Flow Rate FiO2 01/12/17 04:21 98.2 88 20 109/64 Room Air 01/12/17 01:58 95 21 Activity: WNL Respiratory function: WNL Cardiovascular function: WNL Mental status: Baseline Pain reasonably controlled: Yes Hydration appropriate: Yes Nausea/Vomiting absent: Yes PREETHI DAWSON MD January 12, 2017 07:14
[2017-01-12 08:11] LABS: ADD SCAN DIFF NO
[2017-01-12 08:43] LABS: BASOPHILS % 0.2 % (0.0-2.0); EOSINOPHILS % 0.2 % (0.0-7.0); HEMATOCRIT 30.9 % (37.0-47.0); HEMOGLOBIN 10.7 g/dl (12.0-16.0); LYMPHOCYTES # 1.2 10^3/ul (0.8-2.9); LYMPHOCYTES % 10.5 % (15.0-51.0); MEAN CORPUSCULAR HEMOGLOBIN 32.6 pg (29.0-33.0); MEAN CORPUSCULAR HGB CONC 34.6 g/dl (32.0-37.0); MEAN CORPUSCULAR VOLUME 94.2 fl (82.0-101.0); MEAN PLATELET VOLUME 11.1 fl (7.4-10.4); MONOCYTE # 0.9 10^3/ul (0.3-0.9); MONOCYTES % 7.8 % (0.0-11.0); NEUTROPHIL # 9.4 10^3/ul (1.6-7.5); NEUTROPHILS % 80.7 % (39.0-77.0); PLATELET COUNT 185 10^3/UL (140-415); RED BLOOD COUNT 3.28 10^6/ul (4.20-5.40); WHITE BLOOD COUNT 11.7 10^3/ul (4.8-10.8)
[2017-01-12 09:00] VITALS: BP 85/65; PULSE 86; RESP 18
[2017-01-12] MEDS ORDERED: BISACODYL 10 MG SUPP PR ONE (09:00)
[2017-01-12] MEDS: SENNA/DOCUSATE NA (8.6MG/50MG) TAB PO SCH ×2 (10:19→21:00)
[2017-01-12 12:30] VITALS: BP 82/61; PULSE 87; RESP 16
[2017-01-12 16:10] VITALS: BP 89/61; PULSE 77; RESP 17
[2017-01-12 19:30] VITALS: BP 111/59; PULSE 89; RESP 19
--- NOTE | 2017-01-12 19:57 | PN ---
Date/Time of Note Date/Time of Note DATE: 01/12/17 TIME: 19:55 Assessment/Plan VTE Prophylaxis VTE Prophylaxis Intervention: ambulation Lines/Catheters IV Catheter Type (from Nrsg): Saline Lock Assessment/Plan Assessment/Plan POD # 1 S/P C/S + BTL will advance diet and ambulate Subjective 24 Hr Interval Summary NO BM passing flatus Constitutional: BM, ambulates, flatus, improved, no complaints, urine output Pain Control: well controlled Exam/Review of Systems Vital Signs Vitals Vital Signs Date Time Temp Pulse Resp B/P Pulse Ox O2 Delivery O2 Flow Rate FiO2 01/12/17 16:10 99.4 77 17 89/61 Room Air 01/12/17 01:58 95 21 Intake and Output 01/11/17 01/11/17 01/12/17 15:00 23:00 07:00 Intake Total 1100 ml 880 ml 1000 ml Output Total 200 ml 1900 ml 300 ml Balance 900 ml -1020 ml 700 ml Exam Free Text/Dictation Abdomen: soft BS + Incision: covered Constitutional: alert, oriented, well developed Psych: nl mood/affect, no complaints Head: atraumatic, normocephalic Eyes: EOMI, nl conjunctiva, nl lids, nl sclera ENMT: mucosa pink and moist, nl external ears & nose, nl lips & teeth, nl nasal mucosa & septum Neck: non-tender, supple Respiratory: clear to auscultation, normal air movement Cardiovascular: nl pulses, regular rate and rhythm Gastrointestinal: nl liver, spleen, non-tender, soft Musculoskeletal: nl extremities to inspection, nl gait and stance Extremities: normal pulses Neurological: [employer]PER[employer]OR II-XII intact, nl mental status, nl speech, nl strength Skin: nl turgor, rash or lesions Lymph: nl lymph nodes Results Result Diagram: 01/12/17 0645 KENISHA DUFF MD January 12, 2017 19:57
[2017-01-13] MEDS: LACTATED RINGER'S 1,000 ML IV SCH ×2 (01:43→10:23)
[2017-01-13] MEDS: GENTAMICIN 80 MG/NS (PMX) 50 ML IVPB SCH ×3 (02:37→18:18)
[2017-01-13 04:00] VITALS: BP 110/62; PULSE 66; RESP 19
[2017-01-13] MEDS: IBUPROFEN 800 MG TAB PO SCH ×3 (05:39→21:27)
[2017-01-13] MEDS: CLINDAMYCIN 300 MG CAP PO SCH ×4 (05:39→18:16)
[2017-01-13] MEDS ORDERED: CLINDAMYCIN 300 MG CAP PO SCH (06:00)
[2017-01-13] MEDS: OXYCODONE/ACETAMINOPHEN (5/325) TAB PO PRN ×2 (06:32→22:04)
[2017-01-13 07:25] LABS: ADD SCAN DIFF NO
[2017-01-13 07:26] LABS: BASOPHILS % 0.2 % (0.0-2.0); EOSINOPHILS # 0.2 10^3/ul (0.0-0.5); EOSINOPHILS % 2.2 % (0.0-7.0); HEMATOCRIT 33.1 % (37.0-47.0); HEMOGLOBIN 11.4 g/dl (12.0-16.0); LYMPHOCYTES # 1.1 10^3/ul (0.8-2.9); LYMPHOCYTES % 11.7 % (15.0-51.0); MEAN CORPUSCULAR HEMOGLOBIN 32.5 pg (29.0-33.0); MEAN CORPUSCULAR HGB CONC 34.4 g/dl (32.0-37.0); MEAN CORPUSCULAR VOLUME 94.3 fl (82.0-101.0); MEAN PLATELET VOLUME 10.7 fl (7.4-10.4); MONOCYTE # 0.9 10^3/ul (0.3-0.9); MONOCYTES % 8.9 % (0.0-11.0); NEUTROPHIL # 7.2 10^3/ul (1.6-7.5); NEUTROPHILS % 76.1 % (39.0-77.0); PLATELET COUNT 190 10^3/UL (140-415); RED BLOOD COUNT 3.51 10^6/ul (4.20-5.40); RED CELL DISTRIBUTION WIDTH 14.2 % (11.5-14.5); WHITE BLOOD COUNT 9.5 10^3/ul (4.8-10.8)
[2017-01-13 08:30] VITALS: BP 103/61; PULSE 88; RESP 18
[2017-01-13] MEDS: SENNA/DOCUSATE NA (8.6MG/50MG) TAB PO SCH ×2 (09:58→21:27)
[2017-01-13 12:00] VITALS: BP 120/71; PULSE 88; RESP 18
[2017-01-13 15:55] VITALS: BP 101/56; PULSE 72; RESP 19
--- NOTE | 2017-01-13 18:21 | DS ---
Date/Time of Note Date/Time of Note home next day DATE: 01/13/17 TIME: 18:19 Obstetrical Discharge Record Final Diagnosis Final Diagnosis: Term delivered Vaginal Delivery Obstetrical Delivery: Bilateral Tubal Ligation Section Section: Repeat Condition on Discharge Physical Assessment Last Vitals: see nurses notes Voiding: Yes Bowel Movement: Yes Breast: Soft, non-tender, Filling Fundus: Firm Abdomen and Incision: soft BS + incision: healing well Episiotomy: NA Calf Tenderness: No Patient Condition: Good KENISHA DUFF MD January 13, 2017 18:21
--- NOTE | 2017-01-13 18:22 | DS ---
Date/Time of Note Date/Time of Note DATE: 01/13/17 TIME: 18:21 Discharge Summary Admission/Discharge Info Admit Date/Time January 11, 2017 at 11:06 Discharge Date/Time 01/14/2017 Final Diagnosis S/P repeat C/S + BTL Patient Condition: Good Procedures repeat C/S + BTL Hx of Present Illness 36 y/o female had repeat C/S + BTL Hospital Course uncomplicated Home Meds Reported Medications Calcium Carb-Vit D3-Minerals (Calcium + D & Minerals Chew) 1 Each Tab.chew, 1 TAB PO DAILY, TAB.CHEW 01/01/17 Ferrous Sulfate (Iron) 325 Mg Capsule.er, 325 MG PO DAILY, CAP 12/15/16 Vit W-Ca,Fe,FA(<1 mg) ( Vitamins) 1 Each Tablet, 1 EACH PO DAILY, TAB 12/15/16 Follow-up Plan 2-3 days in clinic for staple removal Pending Labs Laboratory Tests Test 01/13/17 06:40 White Blood Count 9.510^3/ul (4.8-10.8) Red Blood Count 3.5110^6/ul (4.20-5.40) Hemoglobin 11.4g/dl (12.0-16.0) Hematocrit 33.1% (37.0-47.0) Mean Corpuscular Volume 94.3fl (82.0-101.0) Mean Corpuscular Hemoglobin 32.5pg (29.0-33.0) Mean Corpuscular Hemoglobin Concent 34.4g/dl (32.0-37.0) Red Cell Distribution Width 14.2% (11.5-14.5) Platelet Count 08663^3/UL (140-415) Mean Platelet Volume 10.7fl (7.4-10.4) Neutrophils % 76.1% (39.0-77.0) Lymphocytes % 11.7% (15.0-51.0) Monocytes % 8.9% (0.0-11.0) Eosinophils % 2.2% (0.0-7.0) Basophils % 0.2% (0.0-2.0) Nucleated Red Blood Cells % 0.0/100WBC (0.0-0.0) Neutrophils # 7.210^3/ul (1.6-7.5) Lymphocytes # 1.110^3/ul (0.8-2.9) Monocytes # 0.910^3/ul (0.3-0.9) Eosinophils # 0.210^3/ul (0.0-0.5) Basophils # 0.010^3/ul (0.0-0.1) Nucleated Red Blood Cells # 0.010^3/ul (0.0-0.0) KENISHA DUFF MD January 13, 2017 18:22
--- NOTE | 2017-01-13 18:24 | PD.PPDC ---
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
[2017-01-13] MEDS ORDERED: IBUP800T25 PO (18:25)
[2017-01-13] MEDS ORDERED: Oxycodone/Acetamin (5/325) PO (18:25)
[2017-01-13 20:00] VITALS: BP 114/61; PULSE 85; RESP 18
[2017-01-14] MEDS: CLINDAMYCIN 300 MG CAP PO SCH ×3 (01:03→13:28)
[2017-01-14] MEDS: GENTAMICIN 80 MG/NS (PMX) 50 ML IVPB SCH ×2 (02:56→10:30)
[2017-01-14 04:00] VITALS: BP 97/56; PULSE 68; RESP 18
[2017-01-14] MEDS: IBUPROFEN 800 MG TAB PO SCH ×2 (05:23→13:28)
[2017-01-14] MEDS ORDERED: DIPHTH/TET/ACEL PERTUSS (ADULT) 0.5 ML VIAL IM* ONE (09:00)
[2017-01-14] MEDS: SENNA/DOCUSATE NA (8.6MG/50MG) TAB PO SCH (09:00)
[2017-01-14] MEDS ORDERED: MEASLES,MUMPS,RUBELLA VACCINE INJ SC* ONE (09:00)
[2017-01-14 10:00] VITALS: BP 121/78; PULSE 80; RESP 18
== END 2017-01-14 18:20 | disposition home or self-care (01) | DRG 766 ==
LOC: L-D 11:06 → PP1 18:13
PROVIDERS: ADMIT Obstetrics & Gynecology; ATTEND Obstetrics & Gynecology
PROC: 0UL70ZZ Occlusion of Bilateral Fallopian Tubes, Open Approach (ICD-10-PCS; 2017-01-11)
PROC: 10D00Z1 Extraction of Products of Conception, Low, Open Approach (ICD-10-PCS; principal; 2017-01-11 13:30)
DX: O34.211 Maternal care for low transverse scar from previous cesarean delivery (principal); Z30.2 Encounter for sterilization; Z3A.39 39 weeks gestation of pregnancy; Z37.0 Single live birth
CPT/HCPCS: 85025; 85610; 85730; 86592; 86850; 86900; 86901; 88302; 90715; 94760; 99464; J1100; J1580; J1885; J2274; J2370; J2405; J2590; J2765; J3370; J7120